=== PATIENT | male | born 1965 | race African-American/Black ===

== ENCOUNTER → 2016-09-26 | Outpatient (CLI) | payer MEDICAID, OTHER | LOC: LAB 13:28 | PROVIDERS: ATTEND Internal Medicine Pulmonary Disease | DX: Z79.899 Other long term (current) drug therapy (principal); Z51.81 Encounter for therapeutic drug level monitoring | CPT/HCPCS: 36415; 80185 ==

== ENCOUNTER → 2016-09-30 | Outpatient (CLI) | payer OTHER, MEDICAID | LOC: LAB 08:50 | PROVIDERS: ATTEND Internal Medicine Pulmonary Disease | DX: Z79.899 Other long term (current) drug therapy (principal) | CPT/HCPCS: 36415; 80185 ==

== ENCOUNTER → 2016-10-10 | Outpatient (CLI) | payer MEDICAID, OTHER | LOC: LAB 09:06 | PROVIDERS: ATTEND Internal Medicine Pulmonary Disease | DX: Z79.899 Other long term (current) drug therapy (principal) | CPT/HCPCS: 36415; 80185 ==

== ENCOUNTER → 2019-04-20 | Outpatient (CLI) | payer OTHER | LOC: RAD 04-07 13:48 | PROVIDERS: ATTEND Family Medicine | DX: R22.0 Localized swelling, mass and lump, head (principal) | CPT/HCPCS: 82565 ==

== ENCOUNTER → 2019-04-29 | Outpatient (CLI) | payer OTHER | LOC: RAD 13:17 | PROVIDERS: ATTEND Family Medicine | DX: R22.1 Localized swelling, mass and lump, neck (principal); Z53.20 Procedure and treatment not carried out because of patient's decision for unspecified reasons ==